=== PATIENT | male | born 1945 | race Caucasian/White ===

== ENCOUNTER → 2017-12-08 | Outpatient (CLI) | payer MEDICARE, MEDICAID ==
[~2017-12-08] MED LIST: ACET500T68 PO; ASPI81TA94 PO; BETA1TAB PO; CALC-777 PO; CHOL200038 PO; CRAN425C8 PO; CRAN500C11 PO; DILT360C3 PO; FOLI-68 PO; HYDR-2966 PO; LISI-374 PO; METF-410 PO; MULT-885 PO; OMEP40CA48 PO; TAMS0.4C25 PO; VIT1CAPS9 PO; VIT1TABL83 PO; VITA-175 PO; [UNRECOGNIZED DRUG - CODE] PO
[2017-12-08 12:24] LABS: LDL CHOLESTEROL 152 mg/dl
== END ==
LOC: LAB 11:44
PROVIDERS: ATTEND Nurse Practitioner Family
DX: I10 Essential (primary) hypertension (principal); R73.9 Hyperglycemia, unspecified; E78.5 Hyperlipidemia, unspecified
CPT/HCPCS: 36415; 82040; 82247; 82310; 82374; 82435; 82465; 82565; 82947; 83036; 83718; 84075; 84132; 84155; 84295; 84450; 84460; 84478; 84520

== ENCOUNTER → 2018-06-22 | Outpatient (CLI) | payer MEDICARE, MEDICAID ==
[~2018-06-22] MED LIST changes: -METF-410 PO; +METF-411 PO
[2018-06-22 12:01] LABS: PLATELET COUNT, AUTOMATED 257 K/uL (150-450)
[2018-06-22 12:17] LABS: LDL CHOLESTEROL 189 mg/dl
== END ==
LOC: LAB 11:42
PROVIDERS: ATTEND Nurse Practitioner Psychiatric/Mental Health
DX: I10 Essential (primary) hypertension (principal); E78.5 Hyperlipidemia, unspecified; R73.9 Hyperglycemia, unspecified; N40.0 Benign prostatic hyperplasia without lower urinary tract symptoms
CPT/HCPCS: 36415; 82040; 82247; 82310; 82374; 82435; 82465; 82565; 82947; 83036; 83718; 84075; 84132; 84153; 84155; 84295; 84443; 84450; 84460; 84478; 84520; 85025

== ENCOUNTER → 2018-11-09 | Outpatient (CLI) | payer MEDICARE, MEDICAID ==
[~2018-11-09] MED LIST changes: -METF-411 PO; +METF-450 PO
[2018-11-09 12:14] LABS: LDL CHOLESTEROL 191 mg/dl
== END ==
LOC: LAB 11:45
PROVIDERS: ATTEND Nurse Practitioner Psychiatric/Mental Health
DX: E78.5 Hyperlipidemia, unspecified (principal); E03.9 Hypothyroidism, unspecified; I10 Essential (primary) hypertension
CPT/HCPCS: 36415; 82040; 82247; 82310; 82374; 82435; 82465; 82565; 82947; 83036; 83718; 84075; 84132; 84155; 84295; 84443; 84450; 84460; 84478; 84520

== ENCOUNTER → 2019-04-05 | Outpatient (CLI) | payer MEDICARE, MEDICAID ==
[2019-04-05 16:13] LABS: LDL CHOLESTEROL 231 mg/dl
[2019-04-05 17:07] LABS: PLATELET COUNT, AUTOMATED 269 K/uL (150-450)
== END ==
LOC: LAB 15:52
PROVIDERS: ATTEND Nurse Practitioner Psychiatric/Mental Health
DX: N40.0 Benign prostatic hyperplasia without lower urinary tract symptoms (principal); E78.5 Hyperlipidemia, unspecified; I10 Essential (primary) hypertension; R73.9 Hyperglycemia, unspecified
CPT/HCPCS: 36415; 82040; 82247; 82310; 82374; 82435; 82465; 82565; 82947; 83036; 83718; 84075; 84132; 84153; 84155; 84295; 84450; 84460; 84478; 84520; 85025